=== PATIENT | female | born 1940 | race Caucasian/White ===

== ENCOUNTER 2017-12-14 17:11 | Inpatient (IN) ==
[2017-12-14] MEDS ORDERED: LACTATED RINGERS 1,000 ML IV ONE ×2 (17:28)
--- NOTE | 2017-12-14 17:29 | Emergency Department Note ---
Fall HPI - General Chief Complaint: Fall Stated Complaint: Fall last tuesday Time Seen by Provider: 12/14/17 17:17 Source: EMS Mode of arrival: EMS - History of Present Illness HPI Narrative: This patient apparently fell one week ago as she was coming her front door tripped on a cable cord and says she laid there for 3 days and could not get up. Finally when she stopped hurting she was able to crawl a bit and communicate with a neighbor and get some help. She did not come to the hospital she was able to get up and get around but now she comes in complaining of persisting pain in both hips especially the right hip and the low lumbar spine. She also has some abrasions on her lateral thigh and hip region. Denies any other symptoms. She mainly said she wanted to make sure she did not have anything broken. - Related Data Home Medications Medication Instructions Recorded Confirmed Pro Air .ROUTE 02/02/17 05/19/17 Tylenol .ROUTE 02/02/17 05/19/17 aspirin 81 mg tablet 81 mg PO .COMPLEX 02/02/17 05/19/17 duloxetine 30 mg capsule,delayed 30 mg PO .COMPLEX 02/02/17 05/19/17 release simvastatin 40 mg tablet 40 mg PO .COMPLEX 02/02/17 05/19/17 warfarin 3 mg tablet 3 mg PO QDAY 02/02/17 05/19/17 Digoxin .ROUTE QDAY 02/08/17 05/19/17 K+ .ROUTE QDAY 02/08/17 05/19/17 Lorsantan PO QDAY 02/08/17 05/19/17 furosemide 20 mg tablet 20 mg PO QDAY tab 02/08/17 05/19/17 levothyroxine PO QDAY 02/08/17 05/19/17 metformin 500 mg tablet 500 mg PO QDAY tab 02/08/17 05/19/17 metoprolol tartrate 25 mg tablet 25 mg PO QDAY tab 02/08/17 05/19/17 Previous Rx's Medication Instructions Recorded mirabegron ER 50 mg 50 mg PO Q24H #30 tab 05/19/17 tablet,extended release 24 hr Ciprofloxacin [Cipro] 500 mg PO BID #14 tab 12/14/17 Allergies Allergy/AdvReac Type Severity Reaction Status Date / Time Iodinated Contrast- Oral and Allergy Intermediate unknown Verified 12/14/17 17: 12 IV Dye Review of Systems All systems ED: reviewed and negative except as stated. Fall PMH - Past Medical History [facility], LAT[facility] Narrative: Medical History (Last Reviewed 05/19/17 @ 15:55 by BRISEIDA Marquez) Aortic valve disease (Chronic) Pleural effusion (Chronic) HTN (hypertension) (Chronic) Urinary urgency (Chronic) Warfarin-induced coagulopathy (Acute) Past Surgical History (Last Reviewed 05/19/17 @ 15:55 by BRISEIDA Marquez) History of cholecystectomy (Resolved) History of open heart surgery (Resolved) No pertinent past surgical history (Inactive) Family History (Last Reviewed 05/19/17 @ 15:55 by BRISEIDA Marquez) Other Cancer Diabetes High blood pressure Kidney stones No pertinent family history - Social History smoking status: Never smoker Physical Exam She does have an abrasion to the right posterior hip region. Mild tenderness lumbar spine. Limitations: no limitations General appearance: alert, in no apparent distress Head: atraumatic, normocephalic Eye: Present: normal appearance ENT: normal exam Neck: Present: normal inspection Chest: Present: normal inspection Respiratory: Present: normal lung sounds bilaterally Cardiovascular: Present: regular rate, normal rhythm, normal heart sounds Abdominal: Present: soft. Absent: distention, tenderness Neurological: Present: alert Psychiatric: Present: normal affect, normal mood Skin: Present: warm, dry Course Vital Signs Temperature 98.3 F 12/14/17 17:12 Pulse Rate 97 H 12/14/17 17:12 Respiratory Rate 18 12/14/17 17:12 Blood Pressure 166/61 12/14/17 17:12 Pulse Oximetry (%) 95 12/14/17 17:12 Temperature 98.3 F 12/14/17 17:12 Pulse Rate 84 12/15/17 07:04 Respiratory Rate 18 12/14/17 17:12 Blood Pressure 113/66 12/15/17 07:01 Pulse Oximetry (%) 95 12/15/17 07:04 Fall - [facility] Narrative Medical decision making narrative: This patient had a UTI but had no broken bones. Although she may have a slight compression fracture that could be reasonably new it is hard to say according to the report. She does have old compression fractures. Patient's CK was 1300 but her creatinine is 0.7 so I do not think she suffered any kidney injury over the last week from this. Patient was treated with IV Levaquin but was reluctant to go home. She claims she has mice and spiders in her house and does not want to go back there. She will be admitted observation. - Lab Data Lab results reviewed: Yes I reviewed the patient's lab results. Result diagrams: 12/14/17 17:30 12/14/17 17:30 Lab Results 12/14/17 12/14/17 12/14/17 Range/Units 17:30 17:30 17:30 WBC 9.9 (4.5-11.0) K/mcL RBC 3.99 L (4.00-5.20) M/mcL Hgb 13.0 (12.0-15.0) g/dL Hct 38.8 (36.0-48.0) % MCV 97.2 (80.0-100.0) fL MCH 32.5 (26.0-34.0) pg MCHC 33.5 (31.0-36.0) g/dL RDW 14.9 H (11.5-14.5) % Plt Count 134 L (140-440) K/mcL MPV 8.7 (7.4-10.4) fL Gran % 82.3 H (38.0-78.0) % Lymph % (Auto) 7.7 L (15.5-49.0) % [place] % (Auto) 9.8 (1.0-12.0) % Eos % (Auto) 0.1 (0.0-7.0) % Baso % (Auto) 0.1 (0.0-2.0) % Gran # 8.2 H (1.8-8.0) K/mcL Lymph # (Auto) 0.8 L (1.5-4.8) K/mcL [place] # (Auto) 1.0 H (0.1-0.9) K/mcL Eos # (Auto) 0 (0.0-0.7) K/mcL Baso # (Auto) 0 (0.0-0.3) K/mcL PT TNP INR TNP Sodium 136 (133-145) mmol/L Potassium 3.2 L (3.3-5.1) mmol/L Chloride 96 (96-108) mmol/L Carbon Dioxide 23 (22-30) mmol/L Anion Gap 17.0 H (8-16) BUN 15 (8-23) mg/dl Creatinine 0.7 (0.6-1.1) mg/dl GFR Calculation 82 Glucose 274 H (70-105) mg/dL Calcium 9.3 (8.6-10.4) mg/dl Total Bilirubin 2.5 H (0.0-1.0) mg/dL AST 61 H (0-37) U/l ALT 26 (0-40) U/l Alkaline Phosphatase 78 (39-117) U/L Total Creatine Kinase 1331 H (24-170) IU/L Total Protein 7.5 (5.9-8.4) gm/dL Albumin 4.1 (3.2-5.2) gm/dL Globulin 3.4 (2.2-3.7) gm/dL Albumin/Globulin Ratio 1.2 (1.0-2.3) Urine Color Urine Appearance Urine pH (5.0-9.0) Ur Specific [place] (1.000-1.035) Urine Protein (NEG) mg/dL Urine Glucose (UA) (NEG) mg/dL Urine Ketones (NEG) mg/dL Urine Occult Blood (<0.03) mg/dL Urine Nitrate (NEG) Urine Bilirubin (NEG) mg/dL Urine Urobilinogen (NEG) mg/dL Ur Leukocyte Esterase (NEG) /uL Urine RBC (0-1) /hpf Urine WBC (0-4) /hpf Ur Squamous Epith Cells (0-4) /hpf Urine Bacteria (0) /hpf Hyaline Casts (0-2) /lpf Urine Mucus (0) /hpf Ur Culture Indicated? 12/14/17 12/14/17 Range/Units 18:16 18:48 WBC (4.5-11.0) K/mcL RBC (4.00-5.20) M/mcL Hgb (12.0-15.0) g/dL Hct (36.0-48.0) % MCV (80.0-100.0) fL MCH (26.0-34.0) pg MCHC (31.0-36.0) g/dL RDW (11.5-14.5) % Plt Count (140-440) K/mcL MPV (7.4-10.4) fL Gran % (38.0-78.0) % Lymph % (Auto) (15.5-49.0) % [place] % (Auto) (1.0-12.0) % Eos % (Auto) (0.0-7.0) % Baso % (Auto) (0.0-2.0) % Gran # (1.8-8.0) K/mcL Lymph # (Auto) (1.5-4.8) K/mcL [place] # (Auto) (0.1-0.9) K/mcL Eos # (Auto) (0.0-0.7) K/mcL Baso # (Auto) (0.0-0.3) K/mcL PT 15.8 H INR 1.3 H Sodium (133-145) mmol/L Potassium (3.3-5.1) mmol/L Chloride (96-108) mmol/L Carbon Dioxide (22-30) mmol/L Anion Gap (8-16) BUN (8-23) mg/dl Creatinine (0.6-1.1) mg/dl GFR Calculation Glucose (70-105) mg/dL Calcium (8.6-10.4) mg/dl Total Bilirubin (0.0-1.0) mg/dL AST (0-37) U/l ALT (0-40) U/l Alkaline Phosphatase (39-117) U/L Total Creatine Kinase (24-170) IU/L Total Protein (5.9-8.4) gm/dL Albumin (3.2-5.2) gm/dL Globulin (2.2-3.7) gm/dL Albumin/Globulin Ratio (1.0-2.3) Urine Color Yellow Urine Appearance Clear Urine pH 6.0 (5.0-9.0) Ur Specific [place] 1.011 (1.000-1.035) Urine Protein 30 A (NEG) mg/dL Urine Glucose (UA) >=500 A (NEG) mg/dL Urine Ketones 5/tr A (NEG) mg/dL Urine Occult Blood 0.03 A (<0.03) mg/dL Urine Nitrate Pos A (NEG) Urine Bilirubin Neg (NEG) mg/dL Urine Urobilinogen 4.0 A (NEG) mg/dL Ur Leukocyte Esterase 500 A (NEG) /uL Urine RBC 1 (0-1) /hpf Urine WBC 37 H (0-4) /hpf Ur Squamous Epith Cells 2 (0-4) /hpf Urine Bacteria Many A (0) /hpf Hyaline Casts 22 H (0-2) /lpf Urine Mucus Few (0) /hpf Ur Culture Indicated? Yes - Radiology Data Radiology results reviewed: Yes I reviewed the patient's radiology results. Disposition Pt seen by DEVOPS ENGINEER/PA only: No Clinical Impression: UTI (urinary tract infection) Disposition: Home, Self-Care Condition: Good Instructions: Urinary Tract Infection in Women (ED) Prescriptions: Ciprofloxacin [Cipro] 500 mg PO BID #14 tab Referrals: Cesar Mireles MD [Primary Care Provider] - Time of Disposition: 23:31
--- NOTE | 2017-12-14 18:09 | XRay Report ---
CLINICAL INFORMATION: Lower back pain. Recent fall TECHNIQUE: AP, lateral, L5-S1 spot view COMPARISON: MRI scan dated 09/27/2016 FINDINGS: Moderate to severe L1 compression fracture. This is unchanged. L4 superior endplate compression fracture. This is essentially unchanged since previous examination. There is mild interval loss of height at T12. This appears new since 09/27/2016. Other vertebral body heights are maintained. Normal lumbar lordosis. Mild right convex rotoscoliosis. Sacrum is negative. No detectable fracture. There is calcification of the abdominal aorta. No abdominal aortic aneurysm. IMPRESSION: 1. Mild compression of the T12 vertebral body. Chronicity is not certain although this is new since 09/27/2016 2. Moderate to severe compression of the L1 vertebral body. L4 superior endplate compression. These findings are stable since 09/27/2016 Interpreted and Authenticated by: Dejon Metcalf 12/14/17
[2017-12-14 18:12] LABS: Basophils # (Auto) 0 K/mcL (0.0-0.3); Basophils % (Auto) 0.1 % (0.0-2.0); Eosinophils # (Auto) 0 K/mcL (0.0-0.7); Eosinophils % (Auto) 0.1 % (0.0-7.0); Granulocytes % (Auto) 82.3 % (38.0-78.0); Lymphocytes # (Auto) 0.8 K/mcL (1.5-4.8); Lymphocytes % (Auto) 7.7 % (15.5-49.0); Mean Cell Volume 97.2 fL (80.0-100.0); Mean Corpuscular HGB Conc 33.5 g/dL (31.0-36.0); Mean Corpuscular Hemoglobin 32.5 pg (26.0-34.0); Monocytes % (Auto) 9.8 % (1.0-12.0); Platelet Count 134 K/mcL (140-440); RBC 3.99 M/mcL (4.00-5.20); Red Cell Distribution Width 14.9 % (11.5-14.5)
--- NOTE | 2017-12-14 18:12 | XRay Report ---
CLINICAL INFORMATION: Fall. Pelvic and hip pain. TECHNIQUE: AP pelvis. Bilateral lateral hips COMPARISON: None. FINDINGS: Femoral heads and necks are negative. No hip fracture. It spaces are bilaterally symmetric. Pelvis is negative. No acute fracture. No lytic lesion. Sacrum is negative. Lateral view of the right hip straits a focal area of trabecular abnormality and cortical thickening in the proximal right femoral diaphysis. This is probably related to old trauma. Clinical correlation recommended. If this is a point of tenderness routine femur films would be helpful. IMPRESSION: 1. Negative pelvis and hips 2. Focal abnormality of the proximal right femoral diaphysis. See above discussion Interpreted and Authenticated by: Dejon Metcalf 12/14/17
[2017-12-14 18:31] LABS: ALT/SGPT 26 U/l (0-40); Albumin 4.1 gm/dL (3.2-5.2); Albumin/Globulin Ratio 1.2 (1.0-2.3); Alkaline Phosphatase 78 U/L (39-117); Blood Urea Nitrogen 15 mg/dl (8-23); Creatine Kinase 1331 IU/L (24-170)
--- NOTE | 2017-12-14 19:35 | XRay Report ---
CLINICAL INFORMATION: Leg injury TECHNIQUE: AP and lateral right femur COMPARISON: Pelvis and right hip 12/14/2017 FINDINGS: Probable osteopenia or osteoporosis. Deformity of the right mid femoral diaphysis is consistent with old trauma. No acute fracture. Degenerative joint disease with marked narrowing of the patellofemoral joint. Moderate to severe narrowing of the medial and lateral femoral tibial joints. IMPRESSION: 1. Probable chronic deformity of the right femoral diaphysis consistent with previous injury 2. Findings consistent with osteopenia or osteoporosis 3. Degenerative joint disease 4. No acute abnormality. Interpreted and Authenticated by: Dejon Metcalf 12/14/17
[2017-12-14 19:50] LABS: Appearance,Urine CLEAR; Bacteria,Urine MANY /hpf (0); Bilirubin,Urine NEG (NEG); Color,Urine YELLOW; Glucose,Urine (UA) >=500 mg/dL (NEG); Leukocyte Esterase,Urine 500 /uL (NEG); Mucus,Urine FEW /hpf (0); Protein,Urine 30 mg/dL (NEG); Specific Gravity,Urine 1.011 (1.000-1.035); Urine Blood 0.03 mg/dL (<0.03); Urine Hyaline Cast 22 /lpf (0-2); Urine RBC 1 /hpf (0-1); Urine Squamous Epithelial Cell 2 /hpf (0-4); Urine WBC 37 /hpf (0-4)
[2017-12-14] MEDS ORDERED: LEVOFLOXACIN 750 MG/150 ML BAG IV ONE (21:34)
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
[2017-12-15] MEDS ORDERED: POTASSIUM CHLORIDE 20 MEQ TABLET PO ONE (11:13)
[2017-12-15] MEDS ORDERED: 0.9 % SODIUM CHLORIDE 1,000 ML IV SCH (11:15)
[2017-12-15] MEDS ORDERED: cefTRIAXone 1 GM in DEXTROSE 5% IN WATER 50 ML IV SCH (11:15)
[2017-12-15] MEDS: ACETAMINOPHEN 325 MG TABLET PO PRN ×2 (11:57→21:02)
[2017-12-15] MEDS: cefTRIAXone 1 GM VIAL IV SCH (11:57)
[2017-12-15] MEDS: 0.9 % SODIUM CHLORIDE 10 ML SYRINGE IV SCH ×2 (14:13→21:23)
[2017-12-15] MEDS ORDERED: FAMOTIDINE 20 MG TABLET PO SCH (21:00)
[2017-12-15] MEDS ORDERED: ACETAMINOPHEN 325 MG TABLET PO PRN (21:11)
[2017-12-15] MEDS ORDERED: WARFARIN 3 MG TABLET PO ONE (21:14)
[2017-12-16 05:20] LABS: Basophils # (Auto) 0 K/mcL (0.0-0.3); Basophils % (Auto) 0.2 % (0.0-2.0); Eosinophils # (Auto) 0 K/mcL (0.0-0.7); Eosinophils % (Auto) 0.7 % (0.0-7.0); Granulocytes % (Auto) 69.3 % (38.0-78.0); Lymphocytes % (Auto) 17.1 % (15.5-49.0); Mean Corpuscular HGB Conc 33.9 g/dL (31.0-36.0); Mean Corpuscular Hemoglobin 33.2 pg (26.0-34.0); Monocytes # (Auto) 0.7 K/mcL (0.1-0.9); Monocytes % (Auto) 12.7 % (1.0-12.0); Platelet Count 115 K/mcL (140-440); RBC 3.61 M/mcL (4.00-5.20); Red Cell Distribution Width 15.4 % (11.5-14.5)
[2017-12-16] MEDS: 0.9 % SODIUM CHLORIDE 10 ML SYRINGE IV SCH ×3 (05:34→20:21)
[2017-12-16 05:43] LABS: Blood Urea Nitrogen 8 mg/dl (8-23); Creatine Kinase 562 IU/L (24-170)
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
[2017-12-16] MEDS: LEVOTHYROXINE 50 MCG TABLET PO SCH (07:35)
[2017-12-16] MEDS: POTASSIUM CHLORIDE 10 MEQ TABLET PO SCH (08:49)
[2017-12-16] MEDS: METOPROLOL TARTRATE 25 MG TABLET PO SCH ×2 (08:49→20:20)
[2017-12-16] MEDS: FAMOTIDINE 20 MG TABLET PO SCH ×2 (08:50→20:21)
[2017-12-16] MEDS: DULoxetine 30 MG CAPSULE PO SCH (08:50)
[2017-12-16] MEDS: SIMVASTATIN 40 MG TABLET PO SCH (08:50)
[2017-12-16] MEDS: ACETAMINOPHEN 325 MG TABLET PO PRN ×2 (08:52→20:21)
[2017-12-16] MEDS: cefTRIAXone 1 GM VIAL IV SCH (08:52)
[2017-12-16] MEDS: LOSARTAN 25 MG TABLET PO SCH (08:52)
[2017-12-16] MEDS: ALBUTEROL SULFATE 1 PUFF INHALER INH SCH ×2 (08:57→20:23)
[2017-12-16] MEDS ORDERED: METOPROLOL TARTRATE 25 MG TABLET PO SCH (09:00)
[2017-12-16] MEDS ORDERED: ENOXAPARIN 40 MG/0.4 ML SYRINGE SQ SCH (09:00)
[2017-12-16] MEDS ORDERED: FAMOTIDINE 40 MG PO SCH (09:00)
[2017-12-16] MEDS ORDERED: WARFARIN 5 MG TABLET PO SCH (09:00)
[2017-12-16] MEDS ORDERED: POLYETHYLENE GLYCOL 3350 17 GM PACKET PO PRN (09:28)
[2017-12-16] MEDS ORDERED: PNEUMOCOCCAL 23-VAL P-SAC VAC 0.5 ML VIAL IM ONE (10:00)
[2017-12-16] MEDS: DIGOXIN 125 MCG TABLET PO SCH (13:22)
[2017-12-16] MEDS ORDERED: WARFARIN 2.5 MG TABLET PO ONE (14:00)
[2017-12-17] MEDS: 0.9 % SODIUM CHLORIDE 10 ML SYRINGE IV SCH ×3 (05:56→20:26)
[2017-12-17 06:15] LABS: Blood Urea Nitrogen 7 mg/dl (8-23)
[2017-12-17 06:51] LABS: Creatine Kinase MB 2.7 ng/ml (0-2.9)
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
[2017-12-17] MEDS: LEVOTHYROXINE 50 MCG TABLET PO SCH (07:16)
[2017-12-17] MEDS ORDERED: MAGNESIUM HYDROXIDE 30 ML ORAL.SUSP PO PRN (07:29)
[2017-12-17] MEDS ORDERED: FLEETS ADULT ENEMA PR PRN (07:29)
[2017-12-17] MEDS ORDERED: BISACODYL 10 MG SUPP.RECT PR PRN (07:29)
[2017-12-17] MEDS: POTASSIUM CHLORIDE 10 MEQ TABLET PO SCH (09:08)
[2017-12-17] MEDS: METOPROLOL TARTRATE 25 MG TABLET PO SCH ×2 (09:09→20:25)
[2017-12-17] MEDS: FAMOTIDINE 20 MG TABLET PO SCH ×2 (09:09→20:25)
[2017-12-17] MEDS: LOSARTAN 25 MG TABLET PO SCH (09:09)
[2017-12-17] MEDS: SENNOSIDES/DOCUSATE SODIUM 1 TAB TABLET PO SCH (09:09)
[2017-12-17] MEDS: cefTRIAXone 1 GM VIAL IV SCH (09:09)
[2017-12-17] MEDS: DULoxetine 30 MG CAPSULE PO SCH (09:09)
[2017-12-17] MEDS: ALBUTEROL SULFATE 1 PUFF INHALER INH SCH ×2 (09:09→20:26)
[2017-12-17] MEDS: DOCUSATE SODIUM 100 MG CAPSULE PO SCH ×2 (09:09→20:25)
[2017-12-17] MEDS: SIMVASTATIN 40 MG TABLET PO SCH (09:09)
[2017-12-17] MEDS: ACETAMINOPHEN 325 MG TABLET PO PRN ×2 (11:05→20:26)
[2017-12-17] MEDS ORDERED: WARFARIN 2 MG TABLET PO ONE (14:15)
[2017-12-17] MEDS: DIGOXIN 125 MCG TABLET PO SCH (14:53)
[2017-12-18] MEDS: 0.9 % SODIUM CHLORIDE 10 ML SYRINGE IV SCH ×3 (05:33→20:32)
[2017-12-18 06:32] LABS: Basophils # (Auto) 0 K/mcL (0.0-0.3); Basophils % (Auto) 0.3 % (0.0-2.0); Eosinophils # (Auto) 0.1 K/mcL (0.0-0.7); Eosinophils % (Auto) 1.9 % (0.0-7.0); Granulocytes % (Auto) 67.3 % (38.0-78.0); Mean Cell Volume 98.9 fL (80.0-100.0); Mean Corpuscular HGB Conc 33.7 g/dL (31.0-36.0); Mean Corpuscular Hemoglobin 33.3 pg (26.0-34.0); Monocytes # (Auto) 0.6 K/mcL (0.1-0.9); Monocytes % (Auto) 11.5 % (1.0-12.0); Platelet Count 129 K/mcL (140-440); RBC 3.43 M/mcL (4.00-5.20); Red Cell Distribution Width 15.9 % (11.5-14.5)
[2017-12-18 07:07] LABS: ALT/SGPT 17 U/l (0-40); Albumin 3.1 gm/dL (3.2-5.2); Albumin/Globulin Ratio 1.1 (1.0-2.3); Alkaline Phosphatase 61 U/L (39-117); Bilirubin,Direct < 0.2 mg/dL (0.0-0.3); Blood Urea Nitrogen 8 mg/dl (8-23); Gamma Glutamyl Transpeptidase 31 U/L (5-36); Uric Acid 1.7 mg/dL (2.5-8.0)
[2017-12-18] MEDS: LEVOTHYROXINE 50 MCG TABLET PO SCH (07:07)
[2017-12-18] MEDS: ACETAMINOPHEN 325 MG TABLET PO PRN ×3 (07:07→20:32)
[2017-12-18] MEDS ORDERED: DEXTROSE 31 GM ORAL.SUSP PO PRN (07:59)
[2017-12-18] MEDS ORDERED: DEXTROSE 50% 50 ML VIAL IV PRN (07:59)
[2017-12-18] MEDS: FAMOTIDINE 20 MG TABLET PO SCH ×2 (08:14→20:31)
[2017-12-18] MEDS: SIMVASTATIN 40 MG TABLET PO SCH (08:14)
[2017-12-18] MEDS: SENNOSIDES/DOCUSATE SODIUM 1 TAB TABLET PO SCH (08:14)
[2017-12-18] MEDS: POTASSIUM CHLORIDE 10 MEQ TABLET PO SCH (08:14)
[2017-12-18] MEDS: DOCUSATE SODIUM 100 MG CAPSULE PO SCH ×2 (08:14→20:31)
[2017-12-18] MEDS: DULoxetine 30 MG CAPSULE PO SCH (08:14)
[2017-12-18] MEDS: METOPROLOL TARTRATE 25 MG TABLET PO SCH ×2 (08:14→20:31)
[2017-12-18] MEDS: LOSARTAN 25 MG TABLET PO SCH (08:14)
[2017-12-18] MEDS: cefTRIAXone 1 GM VIAL IV SCH (08:15)
[2017-12-18] MEDS: ALBUTEROL SULFATE 1 PUFF INHALER INH SCH ×2 (08:15→20:32)
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
[2017-12-18] MEDS: INSULIN LISPRO 1 UNIT/0.01 ML UNIT SQ SCH ×3 (12:13→20:46)
[2017-12-18] MEDS: DIGOXIN 125 MCG TABLET PO SCH (14:19)
[2017-12-19] MEDS: 0.9 % SODIUM CHLORIDE 10 ML SYRINGE IV SCH (05:25)
[2017-12-19] MEDS: ACETAMINOPHEN 325 MG TABLET PO PRN (06:00)
[2017-12-19 06:03] LABS: ALT/SGPT 18 U/l (0-40); Alkaline Phosphatase 68 U/L (39-117); Bilirubin,Direct < 0.2 mg/dL (0.0-0.3); Blood Urea Nitrogen 8 mg/dl (8-23); Gamma Glutamyl Transpeptidase 34 U/L (5-36); Uric Acid 1.7 mg/dL (2.5-8.0)
[2017-12-19 06:28] LABS: Basophils # (Auto) 0 K/mcL (0.0-0.3); Basophils % (Auto) 0.3 % (0.0-2.0); Eosinophils # (Auto) 0.1 K/mcL (0.0-0.7); Eosinophils % (Auto) 2.2 % (0.0-7.0); Granulocytes % (Auto) 71.6 % (38.0-78.0); Lymphocytes # (Auto) 1.1 K/mcL (1.5-4.8); Lymphocytes % (Auto) 16.7 % (15.5-49.0); Mean Corpuscular HGB Conc 33.8 g/dL (31.0-36.0); Mean Corpuscular Hemoglobin 33.1 pg (26.0-34.0); Monocytes # (Auto) 0.6 K/mcL (0.1-0.9); Monocytes % (Auto) 9.2 % (1.0-12.0); Platelet Count 122 K/mcL (140-440); RBC 3.58 M/mcL (4.00-5.20); Red Cell Distribution Width 15.9 % (11.5-14.5)
[2017-12-19] MEDS: LEVOTHYROXINE 50 MCG TABLET PO SCH (07:02)
[2017-12-19] MEDS: INSULIN LISPRO 1 UNIT/0.01 ML UNIT SQ SCH ×2 (08:24→11:56)
[2017-12-19] MEDS: POTASSIUM CHLORIDE 10 MEQ TABLET PO SCH (08:25)
[2017-12-19] MEDS: DOCUSATE SODIUM 100 MG CAPSULE PO SCH (08:25)
[2017-12-19] MEDS: cefTRIAXone 1 GM VIAL IV SCH (08:25)
[2017-12-19] MEDS: SENNOSIDES/DOCUSATE SODIUM 1 TAB TABLET PO SCH (08:25)
[2017-12-19] MEDS: DULoxetine 30 MG CAPSULE PO SCH (08:26)
[2017-12-19] MEDS: METOPROLOL TARTRATE 25 MG TABLET PO SCH (08:26)
[2017-12-19] MEDS: LOSARTAN 25 MG TABLET PO SCH (08:26)
[2017-12-19] MEDS: SIMVASTATIN 40 MG TABLET PO SCH (08:26)
[2017-12-19] MEDS: ALBUTEROL SULFATE 1 PUFF INHALER INH SCH (08:30)
[2017-12-19] MEDS ORDERED: FAMOTIDINE 20 MG TABLET PO SCH (09:00)
[2017-12-19] MEDS ORDERED: CELECOXIB 200 MG CAPSULE PO SCH (09:00)
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
[2017-12-19] MEDS ORDERED: ACETAMINOPHEN 500 MG TABLET PO SCH (15:00)
== END 2017-12-19 12:35 | DRG 558 ==
LOC: ED 17:11 → MEDSUR 12-15 10:06
PROVIDERS: ADMIT Internal Medicine; ATTEND Internal Medicine